=== PATIENT | male | born 1935 | race Caucasian/White ===

== ENCOUNTER 2022-12-31 13:02 | Emergency (ER) | payer MEDICARE, MEDICAID ==
[~2022-12-31] VITALS: Ht 175.3 cm; Wt 77.0 kg
[~2022-12-31 13:02] MED LIST: AMLO1TAB15 PO; ATOR20TA65 PO; DOCU-150 PO; FINA5TAB11 PO; SULF1TAB48 PO
[2022-12-31 16:29] LABS: BASOPHILS % 0.2 % (0.0-2.0); EOSINOPHILS % 0.3 % (0.0-5.0); HEMATOCRIT. 42.7 % (42.0-52.0); HEMOGLOBIN. 14.4 g/dL (14.0-18.0); LYMPHOCYTES % 23.9 % (20.0-50.0); MEAN CORPUSCULAR HEMOGLOBIN 32.1 pg (28.0-32.0); MEAN CORPUSCULAR VOLUME 94.8 fL (80.0-94.0); MEAN PLATELET VOLUME 8.7 fl (7.4-10.4); MONOCYTES % 6.2 % (2.0-8.0); NEUTROPHILS % 69.4 % (40.0-76.0); PLATELET 209 x1000/uL (130-400); RED CELL DISTRIBUTION WIDTH 14.7 % (11.6-14.6)
[2022-12-31 17:04] LABS: CHLORIDE 102 mEq/L (98-107)
[2022-12-31] MEDS ORDERED: AMOX1TAB16 MT (17:38)
[2022-12-31 18:00] VITALS: BP 125/73
== END 2022-12-31 18:10 | disposition home or self-care (01) ==
LOC: ER 13:02
DX: J34.0 Abscess, furuncle and carbuncle of nose (principal); N28.9 Disorder of kidney and ureter, unspecified; E11.9 Type 2 diabetes mellitus without complications; E78.00 Pure hypercholesterolemia, unspecified; I10 Essential (primary) hypertension; Z95.0 Presence of cardiac pacemaker
CPT/HCPCS: 36415; 80053; 84484; 85025; 93005; 99285